=== PATIENT | male | born 1980 | race Caucasian/White ===

== ENCOUNTER → 2021-02-07 | Outpatient (CLI) | payer BC ==
[~2021-02-07] MED LIST: AUGMENTIN 875875 MG; FLEXERIL PO; HYDROCODONE-AP1 EAC6 PO; PROAIR HFA8.5 GM; TESSALON PERLE100 MG
== END ==
LOC: M.LAB 12:05
PROVIDERS: ATTEND Orthopaedic Surgery
DX: Z01.812 Encounter for preprocedural laboratory examination (principal); Z20.822 Contact with and (suspected) exposure to COVID-19

== ENCOUNTER 2021-02-24 14:15 | Inpatient (IN) | payer BC ==
[~2021-02-24] VITALS: Ht 175.3 cm; Wt 79.4 kg
[2021-02-24 14:23] VITALS: BP 152/95
[2021-02-24] MEDS ORDERED: LISINOPRIL20 MG PO (14:28)
[2021-02-24] MEDS ORDERED: CEPHALEXIN500 MG PO (14:29)
[2021-02-24] MEDS ORDERED: DIPHENHIST50 MG PO (14:30)
[2021-02-24 15:15] LABS: ABSOLUTE EOSINOPHILS 0.1 thou/uL (0.0-0.7); ABSOLUTE LYMPHOCYTES 1.6 thou/uL (0.8-5.3); ABSOLUTE MONOCYTES 0.7 thou/uL (0.0-1.2); BASOPHILS 0.5 %; EOSINOPHILS 1.8 %; HEMATOCRIT 43.6 % (42.0-52.0); HEMOGLOBIN 14.8 gm/dL (14.0-18.0); LYMPHOCYTES 19.2 %; MCH 29.3 pg (26.0-34.0); MCHC 33.9 g/dL (28.0-37.0); MCV 86.5 fL (80.0-100.0); MONOCYTES 7.9 %; MPV 8.1 fl. (7.2-11.1); NUCLEATED RBCS 0 /100WBC; PLATELET COUNT* 289 thou/uL (150-400); POLYS 70.6 %; RBC 5.05 mil/uL (4.50-6.00); RDW-CV 13.8 % (10.5-14.5); WBC 8.5 thou/uL (4.0-11.0)
[2021-02-24 15:28] LABS: CALCIUM 9.2 mg/dL (8.5-10.1); POTASSIUM 4.1 mmol/L (3.5-5.1)
[2021-02-24 15:33] LABS: ALBUMIN 3.8 g/dL (3.4-5.0); TOTAL BILIRUBIN 0.3 mg/dL (<0.1-1.0); TOTAL PROTEIN 7.8 g/dL (6.4-8.2)
[2021-02-24 16:35] VITALS: BP 143/87
--- NOTE | 2021-02-24 18:07 | NUR ---
1645: PATIENT ADMITTED TO [facility]INT [facility] SPINE FROM E.. AT THIS TIME. TRANSFERED VIA WHEELCHAIR, ACCOMPANIED BY NURSE AND SPOUSE. PATIENT ADMITTED FOR FIXED DRUG ERRUPTION TO FACE AND LEFT LEG. RASH IS RED, RAISED AND WARM TO THE TOUCH. PATIENT STATES THAT IT FEELS WARM AND IS ITCHY. STATES THAT HIS PAIN IS 3/10. 20 GAUGE TO RIGHT AC, SALINE LOCKED. DRESSING C/D/I. ROOM ORIENTATION REVIEWED. PATIENT IS 2 WEEKS POST-OP LEFT KNEE SURGERY. INCISIONS HEALING, OPEN TO AIR. PATIENT STATES THAT HE IS ALLERGIC TO CLORAPREP, BREAKS OUT IN HIVES. ALL QUESTIONS AND CONCERNS ADDRESSED AT THIS TIME.
[2021-02-24 18:32] VITALS: BP 131/88
[2021-02-25 06:03] LABS: HEMATOCRIT 41.6 % (42.0-52.0); HEMOGLOBIN 14.1 gm/dL (14.0-18.0); MCH 29.2 pg (26.0-34.0); MCHC 33.8 g/dL (28.0-37.0); MCV 86.4 fL (80.0-100.0); MPV 8.2 fl. (7.2-11.1); NUCLEATED RBCS 0 /100WBC; PLATELET COUNT* 301 thou/uL (150-400); RBC 4.81 mil/uL (4.50-6.00); RDW-CV 13.8 % (10.5-14.5)
[2021-02-25 06:08] LABS: CALCIUM 8.7 mg/dL (8.5-10.1); CREATININE 0.7 mg/dL (0.6-1.3); POTASSIUM 4.1 mmol/L (3.5-5.1)
[2021-02-25 07:11] LABS: ABSOLUTE LYMPHOCYTES 0.8 thou/uL (0.8-5.3); ABSOLUTE MONOCYTES 0.3 thou/uL (0.0-1.2); ABSOLUTE NEUTROPHILS 8.9 thou/uL (1.6-8.1); PLATELET ESTIMATE ADEQUATE
[2021-02-25 08:13] VITALS: BP 123/80
[2021-02-25 15:40] VITALS: BP 139/82
--- NOTE | 2021-02-25 18:51 | NUR ---
PATIENT RESTING IN BED. RASH TO FACE, EARS AND LEFT LEG. NO C/O ITCHING OR PAIN. ALERT AND ORIENTED X4. SALINE LOCKED TO RIGHT AC, PATENT, DRESSING C/D/I. NO QUESTIONS OR CONCERNS VOICED.
[2021-02-25 21:44] VITALS: BP 136/83
--- NOTE | 2021-02-26 04:02 | NUR ---
PT VERY PLEASANT ALERT AND ORIENTED, ROOM AIR, UP AD SHARIF. RECEIVED ALL MEDS SCHEDULED. HE SAYS HE IS READY TO GO HOME AND FEELS GOOD ABOUT IT. HE IS EATING AND DRINKING WELL, AMBULATING WELL. THE RASH ON HIS FACE HAS LESSENED WELL THE RASH ON HIS LEFT LEG. NO NEW SPREADING OF THE RASH OVERNIGHT.
[2021-02-26 07:55] VITALS: BP 143/81
[2021-02-26] MEDS ORDERED: PREDNISONE 10 M10 MG PO (10:17)
[2021-02-26] MEDS ORDERED: BENADRYL25 MG PO (10:17)
[2021-02-26] MEDS ORDERED: PROTONIX40 M4 PO (10:17)
[2021-02-26 10:31] VITALS: BP 136/83
[2021-02-26 12:37] VITALS: BP 136/83
== END 2021-02-26 12:35 | disposition home or self-care (01) | DRG 607 ==
LOC: M.ERS 14:15 → M.TBA-ER 15:04 → M.ORTHSURG 16:47
PROVIDERS: Emergency Medicine Emergency Medical Services; ADMIT Internal Medicine; ATTEND Internal Medicine
DX: L27.1 Localized skin eruption due to drugs and medicaments taken internally (principal); E66.9 Obesity, unspecified; I10 Essential (primary) hypertension; T36.95XA Adverse effect of unspecified systemic antibiotic, initial encounter; Z20.822 Contact with and (suspected) exposure to COVID-19; Z98.52 Vasectomy status; Z88.8 Allergy status to other drugs, medicaments and biological substances; Z68.25 Body mass index [BMI] 25.0-25.9, adult; Y92.89 Other specified places as the place of occurrence of the external cause